=== PATIENT | female | born 1955 | race Caucasian/White ===

== ENCOUNTER 2017-10-16 04:08 | Observation (INO) | payer BC ==
[~2017-10-16] VITALS: Ht 160 cm; Wt 106.0 kg
[~2017-10-16 04:08] MED LIST: ATENOLOL25 MG PO; B COMPLE2 PO; BABY ASPIRIN81 MG PO; CIPRO500 MG OR; CLARITIN10 MG PO; COZAAR100 MG PO; INSULIN PUM2; INSULIN PUMP; KLOR-CON M2020 MEQ PO; LORTAB 5 OR; MAGNESIUM-OX400 MG PO; MAXZIDE-2537.5 MG/TA PO; MOTRIN800 MG/TAB PO; NOVOLIN 70/30 SC; POTASSIUM PO; SIMVASTATIN40 MG PO; SYNTHROID200 MCG OR; VITAMIN C500 MG PO; VITAMIN D33000 UNIT PO
[2017-10-16] MEDS ORDERED: INSULIN PUMP (04:36)
[2017-10-16 05:08] LABS: HEMATOCRIT 41.6 % (37.0-47.0); HEMOGLOBIN 13.8 g/dl (12.0-16.0); IMMATURE GRANULOCYTES 0.4 % (0.0-1.0); MEAN CELL VOLUME 95.6 fL CALC (80.0-100.0); MEAN CORPUSCULAR HGB 31.7 pG CALC (26.0-32.0); MEAN CORPUSCULAR HGB CONC 33.2 g/L CALC (32.0-36.0); NEUT# 8.63 thou/uL (2.00-7.15); RED BLOOD COUNT 4.35 mill/uL (4.20-5.60); RED CELL DISTRI WIDTH 13.4 % (11.5-15.5)
[2017-10-16 05:11] LABS: URINE BILIRUBIN - DIPSTICK NEGATIVE (NEGATIVE); URINE BLOOD DIPSTICK NEGATIVE (NEGATIVE); URINE COLOR YELLOW; URINE GLUCOSE - DIPSTICK NEGATIVE (NEGATIVE); URINE KETONE NEGATIVE (NEGATIVE); URINE PROTEIN - DIPSTICK NEGATIVE (NEG-TRACE); URINE UROBILINOGEN - DIPSTICK 0.2 E.U./dL (0.2)
[2017-10-16 05:18] LABS: URINE LEUK ESTERASE SMALL (NEGATIVE); URINE NITRITE - DIPSTICK POSITIVE (Negative)
[2017-10-16 05:25] LABS: URINE CLARITY SL CLOUDY; URINE WBC 20-50 WBC/hpf (0-5)
[2017-10-16 05:26] LABS: URINE BACTERIA MANY hpf; URINE SQUAMOUS EPITHELIAL CELL RARE EPI/hpf (0-FEW)
[2017-10-16 05:39] LABS: ALKALINE PHOSPHATASE 108 u/l (38-126); ANION GAP 15 (6-22 (CALC)); BILIRUBIN, TOTAL 0.5 mg/dL (0.0-1.4); BUN 20 mg/dL (8-23); BUN/CREATININE RATIO 26 (12-20 (CALC)); CALCIUM 9.4 mg/dL (8.4-10.2); CARBON DIOXIDE 25 mmol/l (22-30); CHLORIDE 104 mmol/l (95-108); CREATININE 0.7 mg/dL (0.5-1.0); GFR > 60 ML/MIN (>=60 (CALC)); GFR FOR AFR.AMER. > 60 ML/MIN (>=60 (CALC)); GLUCOSE 260 mg/dL (82-115); POTASSIUM 3.7 mmol/l (3.5-5.1); SGOT/AST 35 u/l (9-36); SGPT/ALT 28 u/l (11-66); SODIUM 141 mmol/l (137-146)
[2017-10-16 05:40] LABS: ACT PARTIAL THROMBO TIME 26.7 SECONDS (20.0-32.5); INTERNATIONAL NORMALIZED RATIO 0.9 RATIO (0.7-1.3); PROTHROMBIN TIME 10.1 SECONDS (9.0-12.5)
[2017-10-16 05:49] LABS: MYOGLOBIN 55 ng/mL (0 - 62)
[2017-10-16 08:00] VITALS: BP 133/53
[2017-10-16 08:14] VITALS: BP 117/56
[2017-10-16 10:02] LABS: CHOLESTEROL HDL RATIO 3.7 (<4.4 (CALC))
[2017-10-16] MEDS ORDERED: LEVOTHYROXIN175 MC1 PO (16:30)
== END 2017-10-16 16:25 | disposition home or self-care (01) | DRG 313 ==
LOC: ED 04:08 → ED-I 04:49 → ED 04:49 → ED-I 06:35 → ED 06:53 → MS2 06:54
PROVIDERS: Emergency Medicine; ADMIT Internal Medicine; ATTEND Internal Medicine
DX: R07.9 Chest pain, unspecified (principal); I10 Essential (primary) hypertension; E03.9 Hypothyroidism, unspecified; R82.71 Bacteriuria; E11.9 Type 2 diabetes mellitus without complications; E78.5 Hyperlipidemia, unspecified; Z79.4 Long term (current) use of insulin; Z96.41 Presence of insulin pump (external) (internal)
CPT/HCPCS: G0378

== ENCOUNTER 2018-05-15 10:43 | Emergency (ER) | payer BC ==
[~2018-05-15] VITALS: Ht 160 cm; Wt 90.0 kg
[~2018-05-15 10:43] MED LIST changes: +ADLT ASA LOW81 MG PO; -BABY ASPIRIN81 MG PO; +LEVOTHYROXIN175 MC1 PO
[2018-05-15] MEDS ORDERED: ISOSORB DIN30 MG PO (11:47)
[2018-05-15] MEDS ORDERED: LOSARTAN POT100 MG PO (11:47)
[2018-05-15] MEDS ORDERED: SIMVASTATIN80 MG PO (11:48)
[2018-05-15] MEDS ORDERED: SYNTHROID100 MCG PO (11:49)
[2018-05-15] MEDS ORDERED: ORPHENADRINE100 MG PO (12:15)
[2018-05-15] MEDS ORDERED: DICLOFENAC75 MG PO (12:15)
[2018-05-15 12:23] VITALS: BP 155/79
== END 2018-05-15 12:23 | disposition home or self-care (01) | DRG 93 ==
LOC: ED 10:43
DX: G89.29 Other chronic pain (principal); M54.5 Low back pain; E11.9 Type 2 diabetes mellitus without complications; I10 Essential (primary) hypertension

== ENCOUNTER 2018-08-02 06:12 | Day surgery (SDC) | payer BC ==
[~2018-08-02] VITALS: Ht 160 cm; Wt 102.1 kg
[~2018-08-02 06:12] MED LIST changes: +DICLOFENAC75 MG PO; +FLEXERIL PO; +ISOSORB DIN30 MG PO; +LOSARTAN POT100 MG PO; +MELOXICAM15 MG PO; +NOVOLOG100 UNIT/M; +ORPHENADRINE100 MG PO; +SIMVASTATIN80 MG PO; +SYNTHROID100 MCG PO
[2018-08-02] MEDS ORDERED: MULTI VIT PO (06:32)
[2018-08-02] MEDS ORDERED: VITAMIN B-12500 MCG PO (06:33)
[2018-08-02] MEDS ORDERED: FISH OIL1000 MG PO (06:33)
[2018-08-02] MEDS ORDERED: MAG OXIDE400 MG PO (06:34)
[2018-08-02] MEDS ORDERED: K-TABS10 MEQ PO (06:34)
[2018-08-02 07:49] VITALS: BP 146/76
== END 2018-08-02 08:15 | disposition home or self-care (01) | DRG 552 ==
LOC: ORM 06:12
PROVIDERS: ATTEND Anesthesiology Pain Medicine
PROC: 3E0R3BZ Introduction of Anesthetic Agent into Spinal Canal, Percutaneous Approach (ICD-10-PCS; principal; 2018-08-02)
PROC: 3E0R33Z Introduction of Anti-inflammatory into Spinal Canal, Percutaneous Approach (ICD-10-PCS; 2018-08-02)
DX: M54.5 Low back pain (principal); M12.9 Arthropathy, unspecified

== ENCOUNTER 2019-02-02 11:20 | Emergency (ER) | payer OTHER, BC ==
[~2019-02-02] VITALS: Ht 160 cm; Wt 102.0 kg
[~2019-02-02 11:20] MED LIST changes: +FISH OIL1000 MG PO; +K-TABS10 MEQ PO; +MAG OXIDE400 MG PO; +MULTI VIT PO; +VITAMIN B-12500 MCG PO
[2019-02-02 11:50] VITALS: BP 161/86
[2019-02-02] MEDS ORDERED: ULTRAM50 M1 PO (12:34)
== END 2019-02-02 12:45 | disposition home or self-care (01) | DRG 605 ==
LOC: ED 11:20
DX: S20.212A Contusion of left front wall of thorax, initial encounter (principal); S20.211A Contusion of right front wall of thorax, initial encounter; M17.11 Unilateral primary osteoarthritis, right knee; E11.9 Type 2 diabetes mellitus without complications; I10 Essential (primary) hypertension; W01.0XXA Fall on same level from slipping, tripping and stumbling without subsequent striking against object, initial encounter; Y92.89 Other specified places as the place of occurrence of the external cause; Y99.0 Civilian activity done for income or pay

== ENCOUNTER 2019-05-06 16:17 | Emergency (ER) | payer BC ==
[~2019-05-06] VITALS: Ht 160 cm; Wt 105.0 kg
[~2019-05-06 16:17] MED LIST changes: +ULTRAM50 M1 PO
[2019-05-06 19:25] VITALS: BP 160/84
== END 2019-05-06 19:25 | disposition home or self-care (01) | DRG 159 ==
LOC: ED 16:17
PROC: 0CQ1XZZ Repair Lower Lip, External Approach (ICD-10-PCS; principal; 2019-05-06)
DX: S01.511A Laceration without foreign body of lip, initial encounter (principal); S50.12XA Contusion of left forearm, initial encounter; S05.12XA Contusion of eyeball and orbital tissues, left eye, initial encounter; Y04.8XXA Assault by other bodily force, initial encounter; Y92.009 Unspecified place in unspecified non-institutional (private) residence as the place of occurrence of the external cause; I10 Essential (primary) hypertension

== ENCOUNTER 2019-05-08 20:43 | Emergency (ER) | payer BC | END 2019-05-08 20:52 | disposition left against medical advice (07) | DRG 951 | LOC: ED 20:43 → LWOBS 20:52 | DX: Z91.19 Patient's noncompliance with other medical treatment and regimen (principal) ==

== ENCOUNTER 2019-05-13 20:09 | Emergency (ER) | payer BC ==
[~2019-05-13] VITALS: Ht 160 cm; Wt 107.0 kg
[2019-05-13 21:05] VITALS: BP 150/88
== END 2019-05-13 21:05 | disposition home or self-care (01) | DRG 950 ==
LOC: ED 20:09
DX: S01.80XD Unspecified open wound of other part of head, subsequent encounter (principal); X58.XXXD Exposure to other specified factors, subsequent encounter; E11.9 Type 2 diabetes mellitus without complications; I10 Essential (primary) hypertension

== ENCOUNTER 2020-06-09 03:06 | Observation (INO) | payer MEDICARE ==
[~2020-06-09] VITALS: Ht 160 cm; Wt 107.5 kg
[~2020-06-09 03:06] MED LIST changes: +BUPROPION150 M4 PO; +BUSPIRONE10 MG PO; +OXYBUTYNIN CHLOR5 M1 PO; +SERTRALINE HCL100 MG PO; +VITAMIN C500 M6 PO
--- NOTE | 2020-06-09 03:10 | NUR ---
BY EMS TO ROOM
[2020-06-09 03:51] LABS: URINE BILIRUBIN - DIPSTICK NEGATIVE (NEGATIVE); URINE BLOOD DIPSTICK SMALL (NEGATIVE); URINE COLOR YELLOW; URINE GLUCOSE - DIPSTICK NEGATIVE (NEGATIVE); URINE KETONE NEGATIVE (NEGATIVE); URINE LEUK ESTERASE NEGATIVE (NEGATIVE); URINE PROTEIN - DIPSTICK 100 mg/dL (NEG-TRACE); URINE SPECIFIC GRAVITY 1.015; URINE UROBILINOGEN - DIPSTICK 0.2 E.U./dL (0.2)
[2020-06-09 03:51] LABS: HEMATOCRIT 36.8 % (37.0-47.0); IMMATURE GRANULOCYTES 0.6 % (0.0-5.0); MEAN CELL VOLUME 94.6 fL CALC (80.0-100.0); MEAN CORPUSCULAR HGB 30.1 pG CALC (26.0-32.0); MEAN CORPUSCULAR HGB CONC 31.8 g/dL CAL (32.0-36.0); NEUT# 16.61 thou/uL (2.00-7.15); RED BLOOD COUNT 3.89 mill/uL (4.20-5.60); RED CELL DISTRI WIDTH 14.6 % (11.5-15.5)
[2020-06-09 03:52] LABS: HEMOGLOBIN 11.7 g/dl (12.0-16.0)
--- NOTE | 2020-06-09 03:52 | NUR ---
zosyn given first, after it is complete will give vanco
[2020-06-09 03:53] LABS: URINE NITRITE - DIPSTICK POSITIVE (Negative)
[2020-06-09 03:54] LABS: URINE BACTERIA MANY hpf; URINE EPITHELIAL CELLS FEW EPI/hpf (0-FEW)
[2020-06-09 04:00] LABS: ALBUMIN 4.3 g/dL (3.2-5.0); ALKALINE PHOSPHATASE 151 u/l (38-126); AMYLASE 32 u/l (30-110); ANION GAP 12 (6-22 (CALC)); BILIRUBIN, TOTAL 0.9 mg/dL (0.0-1.4); BUN 19 mg/dL (8-23); BUN/CREATININE RATIO 21 (12-20 (CALC)); CARBON DIOXIDE 27 mmol/l (22-30); CHLORIDE 100 mmol/l (95-108); CREATININE 0.9 mg/dL (0.5-1.0); GFR > 60 ML/MIN (>=60 (CALC)); GFR FOR AFR.AMER. > 60 ML/MIN (>=60 (CALC)); SGOT/AST 62 u/l (9-36); SODIUM 136 mmol/l (137-146); TOTAL PROTEIN 7.4 g/dL (6.3-8.2)
--- NOTE | 2020-06-09 04:22 | NUR ---
radiology wanted the iv fluid disconnected to take the patient to xray. Vanco had just started and is now delayed for xray.
--- NOTE | 2020-06-09 04:59 | NUR ---
the patient wants a covid test. will inform the doctor.
--- NOTE | 2020-06-09 06:13 | NUR ---
THE PATIENT IS ADMITTED, WAITING FOR A ROOM.
--- NOTE | 2020-06-09 07:01 | NUR ---
INTRODUCED SELF TO PT. PT DENIES ANY PAIN OR NAUSEA. REQUESTED TO REVIEW MES WITH PT AND PT STATES "I DONT KNOW THE NAMES OF THE MEDICATIONS I TAKE" THIS NURSES ASKED IF S/O AT BEDSIDE COULD GO HOME AND GET MEDS, PT STATES YES HE WILL GO HOME AND GET MEDS.
--- NOTE | 2020-06-09 07:06 | NUR ---
REPORT CALLED TO MEL MONK RN
--- NOTE | 2020-06-09 07:15 | NUR ---
PT TRANSPORTED TO ID VIA WC IN NO DISTRESS
--- NOTE | 2020-06-09 07:40 | NUR ---
PT RECIVED FROM ED. ASSESSED PT .PT IS ALERT AND ORIENTED X3. LUNGS CLEAR, NO SHORTNESS OF BREATH AND IS AFEBRILE AT THIS TIME. DISCUSSED POC. PT INSTRUCTED TO CALL [facility] PRIOR TO AMBULATING IF SHE NEEDS TO GET UP. PT VERBALIZED UNDERSTANDING.
[2020-06-09 08:45] VITALS: BP 115/37
[2020-06-09] MEDS ORDERED: TRAZODONE100 MG PO (11:21)
[2020-06-09] MEDS ORDERED: NOVOLOG FL100 UNIT/M (11:22)
[2020-06-09] MEDS ORDERED: HYDROCO/APAP1 T10 PO (11:24)
[2020-06-09] MEDS ORDERED: MAXZIDE-2537.5 MG/TA PO (11:24)
[2020-06-09] MEDS ORDERED: DICLOFENAC50 MG PO (11:26)
[2020-06-09] MEDS ORDERED: LEVOTHYROXIN200 MCG PO (11:31)
[2020-06-09] MEDS ORDERED: ISOSORBIDE MONO30 MG PO (11:32)
[2020-06-09] MEDS ORDERED: BUSPAR10 M1 PO (11:32)
[2020-06-09] MEDS ORDERED: COZAAR100 MG PO (11:33)
[2020-06-09] MEDS ORDERED: SERTRALINE HYD100 MG PO (11:34)
[2020-06-09] MEDS ORDERED: SIMVASTATIN80 MG PO (11:34)
--- NOTE | 2020-06-09 12:23 | NUR ---
DR. VAZQUEZ AT BEDSIDE.
--- NOTE | 2020-06-09 12:30 | NUR ---
ZOSYN INFUSING A ONE TIME ORDER. DR. VAZQUEZ DISCUSSED DISCHARGE WITH PATIENT AND DC WITH [facility].
[2020-06-09] MEDS ORDERED: BACTRIM DS1 TAB PO (13:31)
[2020-06-09 15:00] VITALS: BP 128/72
--- NOTE | 2020-06-09 15:40 | NUR ---
Discharge instructions given. Patient verbalizes understanding of same. Discharged in stable condition via Ambulatory to Home with spouse. All belongings sent with pt.
--- NOTE | 2020-06-09 15:40 | NUR ---
IV site discontinued, cath intact. No edema , no redness, voices no discomfort.
--- NOTE | 2020-06-10 09:28 | NUR ---
REC'D CALL FROM [facility] IN [facility], PRELIM BLOOD CX SHOWS GRAM NEGATIVE RODS IN 1 BOTTLE. PRELIM URINE CX ALSO SHOWS GRAM NEGATIVE RODS. MADE NEY PENG AWARE. CALLED PT, NO ANSWER, LEFT MESSAGE. WILL FOLLOW UP WITH PT AND FINAL BLOOD CX RESULTS
--- NOTE | 2020-06-10 09:53 | NUR ---
SPOKE WITH PT, SHE REPORTS CHILLS AND FEVER OF 102 LAST NIGHT. ADVISED PT TO SEE PCP DAVID OR RETURN TO ER. PT SAYS DR FANG RUSSO IS PCP, FAXED BLOOD CX TO [phone] (DR Valerio). PT SAID SHE WILL GET IN WITH DR Valerio TODAY. ADVISED HER TO RETURN TO ER IF UNABLE
--- NOTE | 2020-06-10 10:25 | NUR ---
PER NEY/DR STAPLETON REQUEST, CALLED PT BACK AND ADVISED TO RETURN TO ER DAVID. PT NEEDS IV ABX. PT AGREEABLE, SAYS SHE'LL COME TO ER TODAY.
== END 2020-06-09 15:40 | disposition home or self-care (01) ==
LOC: ED 03:06 → ED-I 05:44 → ED 06:00 → MS2 06:01
PROVIDERS: Emergency Medicine; ADMIT Internal Medicine; ATTEND Internal Medicine
DX: N12 Tubulo-interstitial nephritis, not specified as acute or chronic (principal); R78.81 Bacteremia; E11.9 Type 2 diabetes mellitus without complications; I10 Essential (primary) hypertension; E78.5 Hyperlipidemia, unspecified; E03.9 Hypothyroidism, unspecified; B96.20 Unspecified Escherichia coli [E. coli] as the cause of diseases classified elsewhere; Z79.4 Long term (current) use of insulin; Z96.41 Presence of insulin pump (external) (internal); Z20.828 Contact with and (suspected) exposure to other viral communicable diseases
CPT/HCPCS: G0378; Q9967

== ENCOUNTER 2020-06-10 13:27 | Observation (INO) | payer MEDICARE ==
[~2020-06-10] VITALS: Ht 160 cm; Wt 109.1 kg
[~2020-06-10 13:27] MED LIST changes: +BACTRIM DS1 TAB PO; +BUSPAR10 M1 PO; +DICLOFENAC50 MG PO; +HYDROCO/APAP1 T10 PO; +ISOSORBIDE MONO30 MG PO; +LEVOTHYROXIN200 MCG PO; +NOVOLOG FL100 UNIT/M; +SERTRALINE HYD100 MG PO; +TRAZODONE100 MG PO
[2020-06-10 14:19] LABS: HEMATOCRIT 36.4 % (37.0-47.0); HEMOGLOBIN 11.3 g/dl (12.0-16.0); IMMATURE GRANULOCYTES 0.4 % (0.0-5.0); MEAN CORPUSCULAR HGB 29.8 pG CALC (26.0-32.0); NEUT# 11.22 thou/uL (2.00-7.15); RED BLOOD COUNT 3.79 mill/uL (4.20-5.60); RED CELL DISTRI WIDTH 14.7 % (11.5-15.5)
[2020-06-10 14:43] LABS: ALBUMIN 4.2 g/dL (3.2-5.0); CREATININE 1.3 mg/dL (0.5-1.0); POTASSIUM 3.2 mmol/l (3.5-5.1); TOTAL PROTEIN 7.3 g/dL (6.3-8.2)
[2020-06-10 14:45] LABS: BILIRUBIN, TOTAL 0.5 mg/dL (0.0-1.4)
[2020-06-10 15:44] VITALS: BP 155/73
[2020-06-10 19:00] VITALS: BP 146/82
[2020-06-11 03:30] VITALS: BP 118/66
[2020-06-11 08:00] VITALS: BP 134/49
[2020-06-11 16:10] VITALS: BP 145/51
[2020-06-11 19:20] VITALS: BP 151/72
[2020-06-12 04:00] VITALS: BP 127/74
[2020-06-12 05:02] LABS: HEMATOCRIT 31.9 % (37.0-47.0); HEMOGLOBIN 9.9 g/dl (12.0-16.0); MEAN CELL VOLUME 96.1 fL CALC (80.0-100.0); MEAN CORPUSCULAR HGB 29.8 pG CALC (26.0-32.0); RED BLOOD COUNT 3.32 mill/uL (4.20-5.60); RED CELL DISTRI WIDTH 14.8 % (11.5-15.5)
[2020-06-12 05:28] LABS: ALKALINE PHOSPHATASE 95 u/l (38-126); ANION GAP 7 (6-22 (CALC)); BUN 11 mg/dL (8-23); BUN/CREATININE RATIO 16 (12-20 (CALC)); CARBON DIOXIDE 28 mmol/l (22-30); CHLORIDE 107 mmol/l (95-108); CREATININE 0.7 mg/dL (0.5-1.0); GFR > 60 ML/MIN (>=60 (CALC)); GFR FOR AFR.AMER. > 60 ML/MIN (>=60 (CALC)); POTASSIUM 3.7 mmol/l (3.5-5.1); SGOT/AST 30 u/l (9-36); SODIUM 138 mmol/l (137-146)
[2020-06-12 05:40] LABS: BILIRUBIN, TOTAL 0.2 mg/dL (0.0-1.4); TOTAL PROTEIN 5.5 g/dL (6.3-8.2)
[2020-06-12 09:39] VITALS: BP 127/74
[2020-06-12] MEDS ORDERED: BACTRIM DS1 TAB PO (10:02)
== END 2020-06-12 12:04 | disposition home or self-care (01) ==
LOC: ED 13:27 → ED-I 13:51 → ED 13:51 → MS2 14:06 → ED-I 14:06 → MS2 15:18
PROVIDERS: Family Medicine; Nurse Practitioner Family; ADMIT Internal Medicine; ATTEND Internal Medicine
DX: N12 Tubulo-interstitial nephritis, not specified as acute or chronic (principal); R78.81 Bacteremia; I10 Essential (primary) hypertension; E11.9 Type 2 diabetes mellitus without complications; E78.5 Hyperlipidemia, unspecified; E03.9 Hypothyroidism, unspecified; B96.20 Unspecified Escherichia coli [E. coli] as the cause of diseases classified elsewhere; Z79.4 Long term (current) use of insulin; Z96.41 Presence of insulin pump (external) (internal); Z20.828 Contact with and (suspected) exposure to other viral communicable diseases
CPT/HCPCS: G0378; J1650

== ENCOUNTER 2020-09-06 18:46 | Emergency (ER) | payer MEDICARE ==
[~2020-09-06] VITALS: Ht 160 cm; Wt 109.1 kg
[2020-09-06] MEDS ORDERED: ASPIRIN81 MG PO (19:12)
[2020-09-06] MEDS ORDERED: OXYBUTYNIN CHLOR5 M1 PO (19:12)
[2020-09-06 19:57] LABS: IMMATURE GRANULOCYTES 0.2 % (0.0-5.0); MEAN CORPUSCULAR HGB 30.5 pG CALC (26.0-32.0); MEAN CORPUSCULAR HGB CONC 32.5 g/dL CAL (32.0-36.0); NEUT# 5.9 thou/uL (2.00-7.15); RED BLOOD COUNT 4.49 mill/uL (4.20-5.60); RED CELL DISTRI WIDTH 14.6 % (11.5-15.5)
[2020-09-06 20:07] LABS: URINE BILIRUBIN - DIPSTICK NEGATIVE (NEGATIVE); URINE BLOOD DIPSTICK NEGATIVE (NEGATIVE); URINE COLOR YELLOW; URINE GLUCOSE - DIPSTICK NEGATIVE (NEGATIVE); URINE KETONE NEGATIVE (NEGATIVE); URINE LEUK ESTERASE TRACE (NEGATIVE); URINE NITRITE - DIPSTICK NEGATIVE (Negative); URINE PROTEIN - DIPSTICK NEGATIVE (NEG-TRACE); URINE UROBILINOGEN - DIPSTICK 0.2 E.U./dL (0.2)
[2020-09-06 20:13] LABS: ALKALINE PHOSPHATASE 98 u/l (38-126); AMYLASE 40 u/l (30-110); ANION GAP 12 (6-22 (CALC)); BUN 15 mg/dL (8-23); BUN/CREATININE RATIO 22 (12-20 (CALC)); CARBON DIOXIDE 30 mmol/l (22-30); CHLORIDE 99 mmol/l (95-108); CREATININE 0.7 mg/dL (0.5-1.0); GFR > 60 ML/MIN (>=60 (CALC)); GFR FOR AFR.AMER. > 60 ML/MIN (>=60 (CALC)); LIPASE 18 u/l (23-300); POTASSIUM 3.6 mmol/l (3.5-5.1); SGOT/AST 29 u/l (9-36); SODIUM 138 mmol/l (137-146)
[2020-09-06 20:14] LABS: ALBUMIN 4.3 g/dL (3.2-5.0); BILIRUBIN, TOTAL 0.4 mg/dL (0.0-1.4); TOTAL PROTEIN 7.9 g/dL (6.3-8.2)
[2020-09-06 20:22] LABS: HEMOGLOBIN 13.7 g/dl (12.0-16.0)
[2020-09-06 20:23] LABS: HEMATOCRIT 42.2 % (37.0-47.0)
[2020-09-06 22:16] VITALS: BP 169/75
== END 2020-09-06 23:02 | disposition home or self-care (01) ==
LOC: ED 18:46
PROVIDERS: Family Medicine
DX: R10.9 Unspecified abdominal pain (principal); E11.9 Type 2 diabetes mellitus without complications; I10 Essential (primary) hypertension; Z79.4 Long term (current) use of insulin

== ENCOUNTER 2021-04-24 20:26 | Emergency (ER) | payer MEDICARE ==
[~2021-04-24] VITALS: Ht 160 cm; Wt 109.0 kg
[~2021-04-24 20:26] MED LIST changes: +ASPIRIN81 MG PO
[2021-04-24 21:59] LABS: ALBUMIN 3.8 g/dL (3.2-5.0); ALKALINE PHOSPHATASE 85 u/l (38-126); ANION GAP 9 (6-22 (CALC)); BILIRUBIN, TOTAL 0.7 mg/dL (0.0-1.4); BUN 22 mg/dL (8-23); BUN/CREATININE RATIO 29 (12-20 (CALC)); CARBON DIOXIDE 29 mmol/l (22-30); CHLORIDE 100 mmol/l (95-108); CREATININE 0.8 mg/dL (0.5-1.0); GFR > 60 ML/MIN (>=60 (CALC)); GFR FOR AFR.AMER. > 60 ML/MIN (>=60 (CALC)); HEMATOCRIT 43.7 % (37.0-47.0); HEMOGLOBIN 14.4 g/dl (12.0-16.0); IMMATURE GRANULOCYTES 0.3 % (0.0-5.0); MEAN CELL VOLUME 96.9 fL CALC (80.0-100.0); MEAN CORPUSCULAR HGB 31.9 pG CALC (26.0-32.0); NEUT# 6.41 thou/uL (2.00-7.15); POTASSIUM 3.6 mmol/l (3.5-5.1); RED BLOOD COUNT 4.51 mill/uL (4.20-5.60); RED CELL DISTRI WIDTH 14.2 % (11.5-15.5); SODIUM 135 mmol/l (137-146)
[2021-04-24 22:02] LABS: SGOT/AST 44 u/l (9-36)
[2021-04-24 22:22] LABS: PROTHROMBIN TIME 10.4 SECONDS (9.0-12.5)
[2021-04-24 23:55] LABS: URINE BILIRUBIN - DIPSTICK NEGATIVE (NEGATIVE); URINE COLOR YELLOW; URINE GLUCOSE - DIPSTICK NEGATIVE (NEGATIVE); URINE KETONE TRACE mg/dL (NEGATIVE); URINE PH 5.5 (4.5-8.0); URINE PROTEIN - DIPSTICK NEGATIVE (NEG-TRACE); URINE SPECIFIC GRAVITY >=1.030; URINE UROBILINOGEN - DIPSTICK 0.2 E.U./dL (0.2)
[2021-04-25] LABS: URINE BLOOD DIPSTICK NEGATIVE (NEGATIVE); URINE LEUK ESTERASE MODERATE (NEGATIVE); URINE NITRITE - DIPSTICK NEGATIVE (Negative)
[2021-04-25 00:02] LABS: URINE BACTERIA MANY hpf; URINE EPITHELIAL CELLS MODERATE EPI/hpf (0-FEW); URINE WBC 50-100 WBC/hpf (0-5)
[2021-04-25] MEDS ORDERED: ATIVAN1 MG PO (09:01)
[2021-04-25] MEDS ORDERED: BUSPIRONE5 MG PO (09:01)
[2021-04-25] MEDS ORDERED: VENLAFAXINE HCL75 M1 PO (09:03)
[2021-04-25] MEDS ORDERED: CEPHALEXIN500 MG PO (12:15)
[2021-04-25] MEDS ORDERED: CYCLOBENZAPRINE10 MG PO (12:15)
[2021-04-25 12:22] VITALS: BP 172/78
== END 2021-04-25 12:43 | disposition home or self-care (01) ==
LOC: ED 20:26
PROVIDERS: Emergency Medicine
DX: N39.0 Urinary tract infection, site not specified (principal); B96.1 Klebsiella pneumoniae [K. pneumoniae] as the cause of diseases classified elsewhere; R42 Dizziness and giddiness; E11.9 Type 2 diabetes mellitus without complications; I10 Essential (primary) hypertension; M54.5 Low back pain; G89.29 Other chronic pain; Z79.4 Long term (current) use of insulin
CPT/HCPCS: J2060

== ENCOUNTER 2021-11-11 05:03 | Emergency (ER) | payer MEDICARE ==
[~2021-11-11] VITALS: Ht 160 cm; Wt 106.0 kg
[~2021-11-11 05:03] MED LIST changes: +ATIVAN1 MG PO; +BUSPIRONE5 MG PO; +CEPHALEXIN500 MG PO; +CYCLOBENZAPRINE10 MG PO; +KEFLEX500 MG PO; +VENLAFAXINE HCL75 M1 PO
[2021-11-11 05:13] VITALS: BP 125/57
[2021-11-11 06:35] LABS: HEMATOCRIT 40.7 % (37.0-47.0); HEMOGLOBIN 12.9 g/dl (12.0-16.0); MEAN CELL VOLUME 100.7 fL CALC (80.0-100.0); MEAN CORPUSCULAR HGB 31.9 pG CALC (26.0-32.0); MEAN CORPUSCULAR HGB CONC 31.7 g/dL CAL (32.0-36.0); NEUT# 15.11 thou/uL (2.00-7.15); RED BLOOD COUNT 4.04 mill/uL (4.20-5.60)
[2021-11-11 06:55] LABS: ALBUMIN 3.8 g/dL (3.2-5.0); BILIRUBIN, TOTAL 0.4 mg/dL (0.0-1.4); CREATININE 1.1 mg/dL (0.5-1.0)
[2021-11-11 06:58] LABS: ACT PARTIAL THROMBO TIME 24.8 SECONDS (20.0-32.5); PROTHROMBIN TIME 10.1 SECONDS (9.0-12.5)
== END 2021-11-11 09:13 | disposition short-term general hospital (02) ==
LOC: ED 05:03
DX: S72.142A Displaced intertrochanteric fracture of left femur, initial encounter for closed fracture (principal); I10 Essential (primary) hypertension; E11.9 Type 2 diabetes mellitus without complications; W18.30XA Fall on same level, unspecified, initial encounter; Y92.009 Unspecified place in unspecified non-institutional (private) residence as the place of occurrence of the external cause; Z79.4 Long term (current) use of insulin

== ENCOUNTER 2022-10-11 14:06 | Emergency (ER) | payer MEDICARE ==
[~2022-10-11] VITALS: Ht 160 cm; Wt 123.0 kg
[2022-10-11] MEDS ORDERED: DOXY-CAPS100 MG PO (14:35)
[2022-10-11] MEDS ORDERED: MUPIROCIN21 TOP (14:35)
[2022-10-11 14:46] VITALS: BP 162/83
[2022-10-11 15:01] VITALS: BP 148/76
[2022-10-11 15:16] VITALS: BP 142/107
== END 2022-10-11 15:21 | disposition home or self-care (01) ==
LOC: ED 14:06
DX: L03.115 Cellulitis of right lower limb (principal); E11.9 Type 2 diabetes mellitus without complications; I10 Essential (primary) hypertension; Z79.4 Long term (current) use of insulin

== ENCOUNTER 2023-08-31 15:14 | Inpatient (IN) | payer MEDICARE ==
[~2023-08-31] VITALS: Ht 160 cm; Wt 90.2 kg
[2023-08-31] VITALS (29 sets, daily range): BP systolic 96–142; BP diastolic 48–111
[~2023-08-31 15:14] MED LIST changes: +DOXY-CAPS100 MG PO; +MUPIROCIN21 TOP
[2023-08-31 15:39] LABS: EOS% 1.9 % (0-8); HEMATOCRIT 42.8 % (37.0-47.0); HEMOGLOBIN 13.8 g/dl (12.0-16.0); IMMATURE GRANULOCYTES 0.2 % (0.0-5.0); LYMPH% 47.9 % (15-41); MEAN CELL VOLUME 101.7 fL CALC (80.0-100.0); MEAN CORPUSCULAR HGB 32.8 pG CALC (26.0-32.0); MEAN CORPUSCULAR HGB CONC 32.2 g/dL CAL (32.0-36.0); MONO% 8.8 % (2-13); NEUT# 5.01 thou/uL (2.00-7.15); NEUT% 40.2 % (42-76); RED BLOOD COUNT 4.21 mill/uL (4.20-5.60); RED CELL DISTRI WIDTH 14.1 % (11.5-15.5)
[2023-08-31 15:48] LABS: ALKALINE PHOSPHATASE 77 u/l (38-126); ANION GAP 13 (6-22 (CALC)); BUN 17 mg/dL (8-23); BUN/CREATININE RATIO 19 (12-20 (CALC)); CARBON DIOXIDE 25 mmol/l (22-30); CHLORIDE 106 mmol/l (95-108); CREATININE 0.9 mg/dL (0.5-1.0); GFR FOR AFR.AMER. > 60 ML/MIN (>=60 (CALC)); GFR OTHER RACES > 60 ML/MIN (>=60 (CALC)); POTASSIUM 3.8 mmol/l (3.5-5.1); SGOT/AST 37 u/l (9-36); SODIUM 140 mmol/l (137-146); TOTAL PROTEIN 7.1 g/dL (6.3-8.2)
[2023-08-31 16:02] LABS: BILIRUBIN, TOTAL 0.9 mg/dL (0.02-1.3)
[2023-08-31 19:08] LABS: URINE BILIRUBIN - DIPSTICK Negative (NEGATIVE); URINE BLOOD DIPSTICK Negative (NEGATIVE); URINE GLUCOSE - DIPSTICK Negative (NEGATIVE); URINE KETONE Negative (NEGATIVE); URINE PROTEIN - DIPSTICK Negative (NEG-TRACE); URINE SPECIFIC GRAVITY 1.015; URINE UROBILINOGEN - DIPSTICK 0.2 E.U./dL (0.2)
[2023-08-31 19:10] LABS: URINE COLOR Yellow; URINE LEUK ESTERASE Small (NEGATIVE); URINE NITRITE - DIPSTICK Positive (Negative)
[2023-08-31 19:16] LABS: URINE BACTERIA FEW hpf; URINE SQUAMOUS EPITHELIAL CELL FEW EPI/hpf (0-FEW)
[2023-08-31] MEDS ORDERED: SERTRALINE25 MG PO (20:33)
[2023-08-31] MEDS ORDERED: ALLERGY RELF10 M3 PO (20:34)
[2023-09-01] VITALS (13 sets, daily range): BP systolic 95–204; BP diastolic 37–173
[2023-09-01 05:43] LABS: EOS% 2.9 % (0-8); IMMATURE GRANULOCYTES 0.1 % (0.0-5.0); LYMPH% 43.7 % (15-41); MEAN CELL VOLUME 103.5 fL CALC (80.0-100.0); MEAN CORPUSCULAR HGB 32.2 pG CALC (26.0-32.0); MEAN CORPUSCULAR HGB CONC 31.1 g/dL CAL (32.0-36.0); MONO% 9.2 % (2-13); NEUT# 4.23 thou/uL (2.00-7.15); NEUT% 43.1 % (42-76); RED BLOOD COUNT 3.67 mill/uL (4.20-5.60); RED CELL DISTRI WIDTH 14.4 % (11.5-15.5)
[2023-09-01 05:46] LABS: HEMOGLOBIN 11.8 g/dl (12.0-16.0)
[2023-09-01 06:03] LABS: ALBUMIN 3.2 g/dL (3.2-5.0); ALKALINE PHOSPHATASE 60 u/l (38-126); ANION GAP 9 (6-22 (CALC)); BILIRUBIN, TOTAL 0.6 mg/dL (0.02-1.3); BUN 20 mg/dL (8-23); BUN/CREATININE RATIO 29 (12-20 (CALC)); CALCULATED LDLCHOLESTEROL 49 mg/dL (62-129 (CALC)); CARBON DIOXIDE 27 mmol/l (22-30); CHLORIDE 109 mmol/l (95-108); CHOLESTEROL HDL RATIO 2.6 (<4.4 (CALC)); CREATININE 0.7 mg/dL (0.5-1.0); GFR FOR AFR.AMER. > 60 ML/MIN (>=60 (CALC)); GFR OTHER RACES > 60 ML/MIN (>=60 (CALC)); HDL CHOLESTEROL 39 mg/dL (39.0-59.0); MAGNESIUM 1.9 mg/dL (1.6-2.3); SGOT/AST 25 u/l (9-36); SODIUM 141 mmol/l (137-146); TOTAL CHOLESTEROL 103 mg/dl (0-199); TOTAL PROTEIN 5.8 g/dL (6.3-8.2); TOTAL TRIGLYCERIDES 74 mg/dl (0-149); VLDL CHOLESTROL 15 mg/dl (1-41 (CALC))
[2023-09-01] MEDS ORDERED: LOPRESSOR25 M1 PO (10:31)
[2023-09-01] MEDS ORDERED: XARELTO20 MG PO (10:33)
[2023-09-01] MEDS ORDERED: BACTRIM DS1 TAB PO (10:40)
== END 2023-09-01 13:30 | disposition home or self-care (01) | DRG 309 ==
LOC: ED 15:14 → ED-I 19:40 → ED 20:01 → ICU 20:02
PROVIDERS: Nurse Practitioner; ADMIT Student in an Organized Health Care Education/Training Program; ATTEND Student in an Organized Health Care Education/Training Program
DX: I48.91 Unspecified atrial fibrillation (principal); D69.3 Immune thrombocytopenic purpura; N39.0 Urinary tract infection, site not specified; B96.20 Unspecified Escherichia coli [E. coli] as the cause of diseases classified elsewhere; I10 Essential (primary) hypertension; E11.9 Type 2 diabetes mellitus without complications; E03.9 Hypothyroidism, unspecified; E78.5 Hyperlipidemia, unspecified; R91.1 Solitary pulmonary nodule; F32.A Depression, unspecified; Z79.4 Long term (current) use of insulin; Z96.41 Presence of insulin pump (external) (internal); Z23 Encounter for immunization
CPT/HCPCS: J1650; Q9967

== ENCOUNTER 2024-06-19 07:59 | Emergency (ER) | payer MEDICARE ==
[2024-06-19] VITALS (8 sets, daily range): BP systolic 112–188; BP diastolic 77–132
[~2024-06-19] VITALS: Ht 160 cm; Wt 95.2 kg
[~2024-06-19 07:59] MED LIST changes: +ALLERGY RELF10 M3 PO; +LOPRESSOR25 M1 PO; +SERTRALINE25 MG PO; +XARELTO20 MG PO
[2024-06-19] MEDS ORDERED: NAPROXEN500 MG PO (10:45)
== END 2024-06-19 11:25 | disposition home or self-care (01) ==
LOC: ED 07:59
DX: M54.50 Low back pain, unspecified (principal); M25.552 Pain in left hip; M25.561 Pain in right knee; I10 Essential (primary) hypertension; E11.9 Type 2 diabetes mellitus without complications; E03.9 Hypothyroidism, unspecified; E78.5 Hyperlipidemia, unspecified; F32.A Depression, unspecified; D69.3 Immune thrombocytopenic purpura; W18.30XA Fall on same level, unspecified, initial encounter; Y92.481 Parking lot as the place of occurrence of the external cause; Z79.4 Long term (current) use of insulin; Z96.41 Presence of insulin pump (external) (internal)

== ENCOUNTER 2024-08-24 13:31 | Observation (INO) | payer MEDICARE ==
[~2024-08-24] VITALS: Ht 160 cm; Wt 90.7 kg
[2024-08-24] VITALS (41 sets, daily range): BP systolic 42–147; BP diastolic 22–114
[~2024-08-24 13:31] MED LIST changes: +NAPROXEN500 MG PO
[2024-08-24] MEDS ORDERED: CARVEDILOL6.25 MG PO (13:44)
[2024-08-24] MEDS ORDERED: DILTIAZEM HCL 25 MG/5 ML SDV IV ONE ×2 (13:45→15:35)
[2024-08-24 14:02] LABS: BASO% 0.7 % (0-3); EOS% 1.6 % (0-8); HEMATOCRIT 40.5 % (37.0-47.0); HEMOGLOBIN 12.8 g/dl (12.0-16.0); IMMATURE GRANULOCYTES 0.1 % (0.0-5.0); LYMPH% 27.9 % (15-41); MEAN CELL VOLUME 103.8 fL CALC (80.0-100.0); MEAN CORPUSCULAR HGB 32.8 pG CALC (26.0-32.0); MEAN CORPUSCULAR HGB CONC 31.6 g/dL CAL (32.0-36.0); MONO% 7.5 % (2-13); NEUT# 6.57 thou/uL (2.00-7.15); NEUT% 62.2 % (42-76); RED BLOOD COUNT 3.9 mill/uL (4.20-5.60); RED CELL DISTRI WIDTH 14.2 % (11.5-15.5)
[2024-08-24] MEDS ORDERED: SODIUM CHLORIDE 0.9% 1,000 ML IV ONE (14:15)
[2024-08-24 14:24] LABS: ALBUMIN 3.9 g/dL (3.2-5.0); ALKALINE PHOSPHATASE 78 u/l (38-126); ANION GAP 10 (6-22 (CALC)); BILIRUBIN, TOTAL 0.6 mg/dL (0.02-1.3); BUN 23 mg/dL (8-23); BUN/CREATININE RATIO 26 (12-20 (CALC)); CARBON DIOXIDE 25 mmol/l (22-30); CHLORIDE 110 mmol/l (95-108); CREATININE 0.9 mg/dL (0.5-1.0); ESTIMATED GFR 69 ML/MIN (>=90 (CALC)); SGOT/AST 35 u/l (9-36); SODIUM 140 mmol/l (137-146); TOTAL PROTEIN 7.1 g/dL (6.3-8.2)
[2024-08-24 14:28] LABS: POTASSIUM 4.6 mmol/l (3.5-5.1)
[2024-08-24] MEDS ORDERED: DILTIAZEM HCL 125 MG in SODIUM CHLORIDE 0.9% 100 ML IV PRN ×2 (16:50→18:00)
[2024-08-24] MEDS ORDERED: SODIUM CHLORIDE 0.9% 500 ML IV ONE ×2 (16:50→18:00)
[2024-08-24] MEDS ORDERED: SODIUM CHLORIDE 0.9% 100 ML IV ONE (17:25)
[2024-08-24] MEDS ORDERED: DILTIAZEM HCL 125 MG in SODIUM CHLORIDE 0.9% 100 ML IV ONE (17:40)
[2024-08-24] MEDS ORDERED: MAGNESIUM HYDROXIDE 30 ML UDC PO PRN (17:55)
[2024-08-24] MEDS ORDERED: Zaleplon 5 MG/CAP PO PRN (17:55)
[2024-08-24] MEDS ORDERED: ACETAMINOPHEN 325 MG/TAB PO PRN (17:55)
[2024-08-24] MEDS ORDERED: CARVEDILOL 6.25 MG/TAB PO SCH (21:00)
[2024-08-24] MEDS ORDERED: INSULIN LISPRO 100 UNITS/ML ML SC SCH (21:00)
[2024-08-24] MEDS ORDERED: ALENDRONATE10 MG PO (22:10)
[2024-08-25] VITALS (19 sets, daily range): BP systolic 102–155; BP diastolic 47–88
[2024-08-25 05:38] LABS: HEMATOCRIT 38.5 % (37.0-47.0); HEMOGLOBIN 12.2 g/dl (12.0-16.0); MEAN CELL VOLUME 103.2 fL CALC (80.0-100.0); MEAN CORPUSCULAR HGB 32.7 pG CALC (26.0-32.0); MEAN CORPUSCULAR HGB CONC 31.7 g/dL CAL (32.0-36.0); RED BLOOD COUNT 3.73 mill/uL (4.20-5.60); RED CELL DISTRI WIDTH 14.1 % (11.5-15.5)
[2024-08-25 05:49] LABS: ALBUMIN 3.3 g/dL (3.2-5.0); BILIRUBIN, TOTAL 0.8 mg/dL (0.02-1.3); CHOLESTEROL HDL RATIO 2.7 (<4.4 (CALC)); CREATININE 0.7 mg/dL (0.5-1.0); POTASSIUM 4.1 mmol/l (3.5-5.1); TOTAL PROTEIN 6.1 g/dL (6.3-8.2)
[2024-08-25] MEDS ORDERED: LEVOTHYROXINE SODIUM 100 MCG TAB PO SCH (06:00)
[2024-08-25] MEDS ORDERED: ISOSORBIDE MONONITRATE 30 MG TAB PO SCH (09:00)
[2024-08-25] MEDS ORDERED: RIVAROXABAN 20 MG TAB PO SCH (09:00)
[2024-08-25] MEDS ORDERED: SERTRALINE HCL 25 MG/TAB PO SCH (09:00)
[2024-08-25] MEDS ORDERED: ELIQUIS5 MG PO (09:24)
== END 2024-08-25 12:45 | disposition home or self-care (01) ==
LOC: ED 13:31 → ED-I 17:27 → ED 17:36 → ICU 17:37
PROVIDERS: Emergency Medicine; ADMIT Internal Medicine; ATTEND Internal Medicine
DX: I48.91 Unspecified atrial fibrillation (principal); I10 Essential (primary) hypertension; E11.9 Type 2 diabetes mellitus without complications; E03.9 Hypothyroidism, unspecified; D69.3 Immune thrombocytopenic purpura; E78.5 Hyperlipidemia, unspecified; F32.A Depression, unspecified; Z79.4 Long term (current) use of insulin; Z96.41 Presence of insulin pump (external) (internal); Z79.01 Long term (current) use of anticoagulants

== ENCOUNTER 2024-10-18 15:36 | Emergency (ER) | payer MEDICARE ==
[~2024-10-18] VITALS: Ht 160 cm; Wt 95.0 kg
[~2024-10-18 15:36] MED LIST changes: +ALENDRONATE10 MG PO; +CARVEDILOL6.25 MG PO; +ELIQUIS5 MG PO
[2024-10-18 15:44] VITALS: BP 191/164
[2024-10-18 15:46] VITALS: BP 182/85
[2024-10-18] MEDS ORDERED: traMADol HCL 50 MG/TAB PO ONE (16:00)
[2024-10-18 16:01] VITALS: BP 153/61
[2024-10-18 16:16] VITALS: BP 177/75
[2024-10-18 16:31] VITALS: BP 179/78
[2024-10-18] MEDS ORDERED: HYDROCO/APAP1 TA9 PO (17:33)
[2024-10-18 17:39] VITALS: BP 179/78
== END 2024-10-18 17:51 | disposition home or self-care (01) ==
LOC: ED 15:36
DX: S92.352A Displaced fracture of fifth metatarsal bone, left foot, initial encounter for closed fracture (principal); E11.9 Type 2 diabetes mellitus without complications; I10 Essential (primary) hypertension; I48.91 Unspecified atrial fibrillation; E66.01 Morbid (severe) obesity due to excess calories; E03.9 Hypothyroidism, unspecified; E78.5 Hyperlipidemia, unspecified; F32.A Depression, unspecified; D69.3 Immune thrombocytopenic purpura; W01.0XXA Fall on same level from slipping, tripping and stumbling without subsequent striking against object, initial encounter; Y92.009 Unspecified place in unspecified non-institutional (private) residence as the place of occurrence of the external cause; Z79.4 Long term (current) use of insulin; Z96.41 Presence of insulin pump (external) (internal)